=== PATIENT | female | born 1970 | race Caucasian/White ===

== ENCOUNTER 2022-05-27 06:43 | Day surgery (SDC) | payer OTHER ==
[~2022-05-27] VITALS: Ht 160 cm; Wt 72.8 kg
[~2022-05-27 06:43] MED LIST: CEPH500 PO
--- NOTE | 2022-05-27 07:35 | NUR ---
05/27/22 0735 JOSE ALBERTO OHARA 2 ATTEMPTS AT IV. FIRST ATTEMPT BY MA IN RIGHT HAND MISSED. 2ND ATTEMPT BY MA IN RIGHT WRIST SUCCESSFUL.
== END 2022-05-27 09:33 | disposition home or self-care (01) ==
LOC: ORSCSDS 06:43
PROVIDERS: Student in an Organized Health Care Education/Training Program
PROC: 0D5K8ZZ Destruction of Ascending Colon, Via Natural or Artificial Opening Endoscopic (ICD-10-PCS; principal; 2022-05-27 08:00)
PROC: 0DBH8ZX Excision of Cecum, Via Natural or Artificial Opening Endoscopic, Diagnostic (ICD-10-PCS; principal; 2022-05-27 08:00)
PROC: 0DBL8ZX Excision of Transverse Colon, Via Natural or Artificial Opening Endoscopic, Diagnostic (ICD-10-PCS; principal; 2022-05-27 08:00)
DX: Z12.11 Encounter for screening for malignant neoplasm of colon (principal); D12.2 Benign neoplasm of ascending colon; K55.20 Angiodysplasia of colon without hemorrhage
CPT/HCPCS: 88305; J2405; J2704; J7120

== ENCOUNTER 2022-05-27 22:00 | Inpatient (IN) | payer OTHER ==
[~2022-05-27] VITALS: Ht 160 cm; Wt 73.0 kg
[2022-05-27 23:00] LABS: BASOPHILS ABSOLUTE AUTO 0.03 K/mm3 (0.00-0.23); BASOPHILS PERCENT AUTO 0 % (0-2); EOSINOPHILS ABSOLUTE AUTO 0.05 K/mm3 (0.00-0.68); EOSINOPHILS PERCENT AUTO 1 % (0-6); Hematocrit 41.2 % (33.0-51.0); Hemoglobin 13.7 g/dL (11.5-16.0); IMMATURE GRAN ABSOLUTE AUTO 0.04 K/mm3 (0.00-0.10); IMMATURE GRAN PERCENT AUTO 0 % (0-1); LYMPHOCYTES ABSOLUTE AUTO 1.01 K/mm3 (0.84-5.20); LYMPHOCYTES PERCENT AUTO 11 % (21-46); MONOCYTES ABSOLUTE AUTO 0.45 K/mm3 (0.16-1.47); MONOCYTES PERCENT AUTO 5 % (4-13); Mean Corpuscular HGB Conc 33.3 g/dL (31.5-36.5); Mean Corpuscular Volume 90 fL (80-100); Mean Platelet Volume 11.4 fL (9.1-12.4); NEUTROPHILS ABSOLUTE AUTO 7.86 K/mm3 (1.96-9.15); NEUTROPHILS PERCENT AUTO 83 % (41-73); Platelet Count 256 K/mm3 (150-400); RDW Coefficient Variation 13.1 % (11.7-14.2); RDW Standard Deviation 43.3 fL (35.1-46.3); Red Blood Cell Count 4.56 M/mm3 (3.80-5.20); White Blood Cell Count 9.44 K/mm3 (4.00-11.30)
[2022-05-27 23:19] LABS: Albumin, Blood 3.6 g/dL (3.4-5.0); Bilirubin, Total 0.3 mg/dL (0.1-1.0); Bun/Creatinine Ratio 12.5 (12.0-20.0); Calcium, Blood 8.8 mg/dL (8.5-10.1); Creatinine, Blood 0.8 mg/dL (0.40-1.00); Globulin, Blood 3.6 g/dL (2.2-4.0); Potassium, Blood 3.6 mmol/L (3.5-5.5); Total Protein, Blood 7.2 g/dL (6.4-8.2)
--- NOTE | 2022-05-28 01:49 | NUR ---
05/28/22 0149 Whit Son PT ON SCHEDULED ANTIBIOTICS
--- NOTE | 2022-05-28 05:18 | NUR ---
ADMISSION TO PCU PT FROM ICU RECOVERY. ALERT BUT LETHARGIC. TACHYPNEIC, 20'S HR, SINUS TACH 100'S BUT VSS. PT TRANSFERRED INTO BED. KARLY DRESSING/PUMP NOTED TO MIDLINE ABD. CDI. DIME SIZE RED DRAINAGE NOTED. PT APINFUL. DILAUDID PCU PUMP STARTED TO RELIEF. LR STARTED PER EMAR. Q15 VS CURRENLY. ADMISSION COMPLETED TO BEST OF ABILITY GIVEN PT'S LETHARGIC STATE. BED ALARM ON. 3 SIDE RAILS UP. BED IN LOW POSITION.
[2022-05-28 06:55] LABS: Hematocrit 44.4 % (33.0-51.0); Hemoglobin 14.7 g/dL (11.5-16.0); Mean Corpuscular HGB Conc 33.1 g/dL (31.5-36.5); Mean Corpuscular Volume 91 fL (80-100); Mean Platelet Volume 11.5 fL (9.1-12.4); Platelet Count 196 K/mm3 (150-400); RDW Coefficient Variation 13.2 % (11.7-14.2); RDW Standard Deviation 44.2 fL (35.1-46.3); White Blood Cell Count 2.39 K/mm3 (4.00-11.30)
[2022-05-28 07:31] LABS: Bun/Creatinine Ratio 12.5 (12.0-20.0); Calcium, Blood 7.4 mg/dL (8.5-10.1); Creatinine, Blood 0.8 mg/dL (0.40-1.00); Magnesium, Blood 1.5 mg/dL (1.6-2.4); Potassium, Blood 3.4 mmol/L (3.5-5.5)
[2022-05-28 07:36] LABS: BAND PERCENT MAN 26 % (0-8); BASOPHILS PERCENT MAN 0 % (0-2); EOSINOPHILS PERCENT MAN 0 % (0-6); LYMPHOCYTES ABSOLUTE MAN 0.19 K/mm3 (0.84-5.20); LYMPHOCYTES PERCENT MAN 8 % (21-46); METAMYELOCYTE ABSOLUTE MAN 0.23 K/mm3 (0.00-0.00); METAMYELOCYTE PERCENT MAN 10 % (0-0); MONOCYTES ABSOLUTE MAN 0.16 K/mm3 (0.16-1.47); MONOCYTES PERCENT MAN 7 % (4-13); NEUTROPHILS ABSOLUTE MAN 1.79 K/mm3 (1.96-9.15); SEG NEUTROPHILS PERCENT MAN 49 % (41-73); TOTAL CELLS COUNTED 100
--- NOTE | 2022-05-28 08:20 | NUR ---
ASSUMED CARE: REPORT RECEIVED FROM BABITA Valero RN. ASSUMED CARE OF THIS PT AT APPROX 0700. ON ASSESSMENT, THE PT IS RESTING QUIETLY. SHE AWAKENS EASILY TO VERBAL STIMULUS & IS ORIENTED TO ALL AT THAT TIME. SHE STS HAVING ABD PAIN THAT IS IMPROVED SINCE INITIAL ONSET. USE OF MOTEL MANAGER IS REVIEWED & SHE IS ABLE TO USE W/O DIFFICULTY. TEMP READING 101.4 THIS AM, PT STS FEELING WARM & REQUESTS EXTRA BLANKETS BE REMOVED, WILL RECHECK TEMP & ADDRESS W/ PROVIDER PRN. LS CLEAR T/O, PT INITIALLY ON 1L NC, PT NOW ON RA W/ O2 SATS > 92%. MONITOR SHOWS ST W/ HR 100-110s, BP STABLE. PT NPO AT THIS TIME S/P RIGHT HEMICOLECTOMY. SANCHEZ PATENT/ DRAINING YELLOW URINE. SKIN CONDITION OVERALL INTACT. SURGICAL INCISION TO MIDLINE ABD W/ KARLY WOUND VAC IN PLACE. TWO SMALL DIME-SIZED AREAS OF DRAINAGE NOTED TO DRESSING, SANGUINOUS, DRIED. GREEN INDICATOR LIGHT ON KARLY WOUND VAC BLINKING "OK." WILL CONTINUE TO MONITOR & UPDATE NEEDED.
--- NOTE | 2022-05-28 09:15 | NUR ---
DR CASILLAS: PROVIDER AT BEDSIDE THIS AM TO [facility] PT. SHE STS THAT THE PT IS APPROPRIATE FOR TRANSFER TO SURGICAL FLOOR, TELE ORDERED R/T SINUS TACHYCARDIA. CLEAR LIQUID DIET OKAY BE STARTED & SANCHEZ CATHETER SHOULD BE REMOVED ONCE PT MORE MOBILE. ORDERS FOR PHYSICAL & OCCUPATIONAL THERAPIES ALREADY IN PLACE. PROVIDER WOULD LIKE THE PT TO HAVE AN INCENTIVE SPIROMETER AT BEDSIDE. TEMPORAL TEMP NOW DECREASED TO 100.2 & PROVIDER AWARE. NO OTHER CHANGES AT THIS TIME.
--- NOTE | 2022-05-28 12:32 | NUR ---
TRANSFER TO SURGICAL FLOOR: REPORT HAS BEEN GIVEN TO LAN Colon RN TO ASSUME CARE. PT CHART, MEDICATIONS & BELONGINGS HAVE ALL BEEN GATHERED & TAKEN TO ROOM 224 W/ THE PT. FAMILY HAS COME TO BEDSIDE AT THIS TIME & FOLLOWS THIS RN TO THE PT's NEW ROOM. VSS, PAIN WELL-MANAGED W/ FARM MACHINERY MECHANIC USE BY PT.
--- NOTE | 2022-05-28 17:18 | NUR ---
SHIFT SUMMARY PT A&OX4, VSS/RA. NAUSEA TREATED X1-ENC PT TO SLOW PO CLD INTAKE. SANCHEZ PATENT & DRAINING YELLOW URINE, STAT LOCK ON, OFF FLOOR, PLAN FOR REMOVAL TOMORROW AM. PT BEGAN MOVING AROUND TODAY, WORKING WITH THERAPY, UP TO CHAIR FOR SHORT TIME, AMB W/FWW & SBA. PAIN MANAGED WELL WITH CONTINUOUS MINER OPERATOR/DEMAND. FAMILY AT BEDSIDE. WILL REPORT TO ONCOMING NOC RN.
--- NOTE | 2022-05-29 05:05 | NUR ---
EMULSION OPERATOR SUMMARY PT WAS NAUSEAS AT START OF SHIFT DUE TO DRINKING TOO MUCH WATER. PT STATED SHE THOUGHT SHE HAD TO DRINK ALOT OF WATER TO STAY HYDRATED. EDUCATED PT TO SLOW DOWN ON PO INTAKE AND PT HAS HAD NO N/V SINCE THEN, MOSTLY TAKING SMALL SIPS AND ICE CHIPS. PT PAIN HAS ALSO BEEN MOSTLY MANAGED WITH IV TORADOL WITH MINIMAL USE OF AGENCY SERVICE COORDINATOR. PT DENIES PASSING FLATUS YET BUT HAS REPORTED SOME GURGLING OF HER BOWELS THROUGHOUT THE NIGHT. ABD KARLY DRESSING UNCHANGED THROUGH THE NIGHT, NO NEW DRAINAGE. VSS, WILL CONTINUE TO MONITOR.
[2022-05-29 08:26] LABS: Hematocrit 39.9 % (33.0-51.0); Hemoglobin 12.8 g/dL (11.5-16.0); Mean Corpuscular HGB 29.8 pg (26.0-34.0); Mean Corpuscular HGB Conc 32.1 g/dL (31.5-36.5); Mean Corpuscular Volume 93 fL (80-100); Mean Platelet Volume 12.2 fL (9.1-12.4); Platelet Count 181 K/mm3 (150-400); RDW Coefficient Variation 13.8 % (11.7-14.2); RDW Standard Deviation 46.7 fL (35.1-46.3); Red Blood Cell Count 4.29 M/mm3 (3.80-5.20); White Blood Cell Count 11.53 K/mm3 (4.00-11.30)
[2022-05-29 08:50] LABS: BAND PERCENT MAN 45 % (0-8); BASOPHILS PERCENT MAN 0 % (0-2); EOSINOPHILS PERCENT MAN 0 % (0-6); LYMPHOCYTES ABSOLUTE MAN 0.69 K/mm3 (0.84-5.20); LYMPHOCYTES PERCENT MAN 6 % (21-46); MONOCYTES ABSOLUTE MAN 0.11 K/mm3 (0.16-1.47); MONOCYTES PERCENT MAN 1 % (4-13); NEUTROPHILS ABSOLUTE MAN 10.72 K/mm3 (1.96-9.15); SEG NEUTROPHILS PERCENT MAN 48 % (41-73); TOTAL CELLS COUNTED 100
[2022-05-29 09:39] LABS: Bun/Creatinine Ratio 12.7 (12.0-20.0); Creatinine, Blood 1.42 mg/dL (0.40-1.00); Phosphorus, Blood 2.7 mg/dL (2.5-4.9); Potassium, Blood 4.3 mmol/L (3.5-5.5)
--- NOTE | 2022-05-29 16:47 | NUR ---
SUMMARY: PT IS POD1 RADHA COLECTOMY. A/O, VSS, TELE STABLE. SURGICAL SITE WNL WITH SMALL DRY DRAINAGE. PT HAD SOME NAUSEA AND EMESIS THIS AFTERNOON, PT UNSURE IF NAUSEA FROM LIQUIDS OR GETTING UP TO THE BATHROOM. HAS TAKEN IN MINIMAL PO. PT DENIES PASSING GAS, MOVEMENT ENCOURAGED. PT ABLE TO WORK WITH PT/OT. ATTEMPTED TO WEAN OFF BOILERMAKER FITTER TODAY, PT STILL NEEDED BOLUS DOSE. PT REPORTS PAIN MANAGED WELL WITH TYLENOL AND TORADOL AND DILAUDID BOILERMAKER FITTER FOR BREAK THROUGH. WILL CTM AND REPORT TO MEREDITH PEREZ.
--- NOTE | 2022-05-30 04:59 | NUR ---
ENROBING MACHINE OPERATOR SUMMARY PT HAD FIRST BOWEL MOVEMENT TONIGHT. PT WAS INCONTINENT OF BROWN LIQUID STOOL WHILE SLEEPING. SOME PASSING OF FLATUS WELL. PT ONLY TOLERATING SMALL AMOUNTS OF WATER/ICE CHIPS STILL. PT HAS BEEN USING BULB SORTER MORE AND STATED "I'VE BEEN FEELING BETTER SINCE USING THE BULB SORTER MORE BECAUSE I TOLD MYSELF I NEED TO STOP THINKING I CAN JUST TOUGH THIS OUT". PT ALSO RECIEVING IV TORADOL NEEDED. VSS, WILL CONTINUE TO MONITOR.
[2022-05-30 05:37] LABS: Hematocrit 37.5 % (33.0-51.0); Mean Corpuscular HGB 30.2 pg (26.0-34.0); Mean Corpuscular Volume 94 fL (80-100); Platelet Count 171 K/mm3 (150-400); RDW Coefficient Variation 13.7 % (11.7-14.2); RDW Standard Deviation 47.1 fL (35.1-46.3); Red Blood Cell Count 3.98 M/mm3 (3.80-5.20); White Blood Cell Count 10.51 K/mm3 (4.00-11.30)
[2022-05-30 05:52] LABS: Albumin, Blood 2.3 g/dL (3.4-5.0); Anion Gap 8 mmol/L (6-16); Blood Urea Nitrogen 17 mg/dL (8-24); Bun/Creatinine Ratio 14.9 (12.0-20.0); CO2, Blood 23 mmol/L (21-32); Calcium, Blood 8.4 mg/dL (8.5-10.1); Chloride, Blood 113 mmol/L (98-108); Creatinine, Blood 1.14 mg/dL (0.40-1.00); Glomerular Filtration Rate 59 (60-); Glucose, Blood 89 mg/dL (70-99); Phosphorus, Blood 2.2 mg/dL (2.5-4.9); Potassium, Blood 3.8 mmol/L (3.5-5.5); Sodium, Blood 144 mmol/L (136-145)
[2022-05-30 06:04] LABS: BAND PERCENT MAN 11 % (0-8); BASOPHILS PERCENT MAN 0 % (0-2); EOSINOPHILS ABSOLUTE MAN 0.31 K/mm3 (0.00-0.68); EOSINOPHILS PERCENT MAN 3 % (0-6); LYMPHOCYTES ABSOLUTE MAN 0.63 K/mm3 (0.84-5.20); LYMPHOCYTES PERCENT MAN 6 % (21-46); MONOCYTES PERCENT MAN 0 % (4-13); NEUTROPHILS ABSOLUTE MAN 9.56 K/mm3 (1.96-9.15); SEG NEUTROPHILS PERCENT MAN 80 % (41-73); TOTAL CELLS COUNTED 100
--- NOTE | 2022-05-30 17:58 | NUR ---
SHIFT SUMMARY POD 2 RADHA-COLECTOMY, MIDLINE INCISION WITH KARLY IN PLACE, HAS GOOD SEEL & SUCTION, 2 SMALL SPOTS OF DRAINAGE, UNCHANGED SINCE BEGINNING OF SHIFT. PAIN MANAGED WITH DILAUDID TAP AND DIE MAKER TECHNICIAN. NAUSEA X1 THIS SHIFT. TOLERATING VERY SMALLA MERLENE OF CLEAR LIQUIDS, MOSTLY ICE CHIPS. UP TO BR INDEPENDENTLY. HAD MEDIUM BOWEL MOVEMENT TODAY, PASSING GAS. VOIDING WELL. CALLS APPROPRIATELY, WILL REPORT TO ONCOMING RN.
[2022-05-31 05:15] LABS: Bun/Creatinine Ratio 13.9 (12.0-20.0); Calcium, Blood 8.1 mg/dL (8.5-10.1); Creatinine, Blood 1.01 mg/dL (0.40-1.00); Potassium, Blood 3.4 mmol/L (3.5-5.5)
--- NOTE | 2022-05-31 05:35 | NUR ---
SHIFT SUMMARY A/O X4- IND IN THE ROOM. POD3- RADHA COLECTOMY, KARLY DRESSING INTACT W/ DRIED DRAINAGE. PT REPORTS PASSING FLATUS AND BOWEL MOVEMENTS. VOIDING WELL AND TOLERATING CLEAR LIQUIDS- NAUSEA MEDICATIONS GIVEN Q6H PER EMAR. PAIN MANAGED W/ DILAUDID BUSINESS SUPPORT ADMINISTRATOR. VITAL SIGNS STABLE. WILL CONTINUE TO MONITOR AND REPORT TO ONCOMING RN.
--- NOTE | 2022-05-31 16:00 | NUR ---
Shift Summary POD 3 RADHA-COLECTOMY, MIDLINE KARLY IN PLACE WITH GOOD SUCTION. TOLERATING FULL LIQUID DIET WELL, MINIMAL INTAKE BUT DENIES N/V. PAIN MANAGED WITH PO OXYCODONE AND TORADOL PER EMAR. INDEPENDENT IN ROOM, AMBULATED HALLS X1 THIS SHIFT. ENCOURAGING WALKING. PATIENT HAD MULTIPLE SMALL LOOSE BM'S TODAY. REPORTS FLATUS. CALL LIGHT IN REACH. REPORT GIVEN TO ADRIENNE PEREZ.
--- NOTE | 2022-06-01 07:19 | NUR ---
SUMMARY PT TOLERATING PO.VOIDING. PASSING LIQ BM AND FLATUS. REPORTS PAIN WELL CONTROLLED WITH PO AND TORADOL.
[2022-06-02 06:03] LABS: BASOPHILS ABSOLUTE AUTO 0.05 K/mm3 (0.00-0.23); BASOPHILS PERCENT AUTO 1 % (0-2); EOSINOPHILS ABSOLUTE AUTO 0.13 K/mm3 (0.00-0.68); EOSINOPHILS PERCENT AUTO 2 % (0-6); Hematocrit 37.1 % (33.0-51.0); Hemoglobin 11.9 g/dL (11.5-16.0); Mean Corpuscular HGB 29.5 pg (26.0-34.0); Mean Corpuscular HGB Conc 32.1 g/dL (31.5-36.5); Mean Corpuscular Volume 92 fL (80-100); Mean Platelet Volume 11.9 fL (9.1-12.4); Platelet Count 181 K/mm3 (150-400); RDW Coefficient Variation 13.3 % (11.7-14.2); RDW Standard Deviation 45.3 fL (35.1-46.3); Red Blood Cell Count 4.03 M/mm3 (3.80-5.20); White Blood Cell Count 7.94 K/mm3 (4.00-11.30)
[2022-06-02 06:17] LABS: IMMATURE GRAN ABSOLUTE AUTO 0.06 K/mm3 (0.00-0.10); IMMATURE GRAN PERCENT AUTO 1 % (0-1); LYMPHOCYTES ABSOLUTE AUTO 1.26 K/mm3 (0.84-5.20); LYMPHOCYTES PERCENT AUTO 16 % (21-46); MONOCYTES ABSOLUTE AUTO 0.79 K/mm3 (0.16-1.47); MONOCYTES PERCENT AUTO 10 % (4-13); NEUTROPHILS ABSOLUTE AUTO 5.65 K/mm3 (1.96-9.15); NEUTROPHILS PERCENT AUTO 71 % (41-73)
--- NOTE | 2022-06-02 07:35 | NUR ---
SUMMARY PT WITH NO FURTHER TORADOL AVAILABLE. WAS TAKING RITESH 1 PO. THIS AM REQUESTED 2 RITESH DUE TO D/C OF TORADOL.PT PASSING LIQ STOOLS.PT WITH T MAX 100.7 DURING MY SHIFT.ENC IS PILLOW SPLINT CDB. PT ALSO WITH POSSIBLE ORAL THRUSH. DAY RN AGREES TO FOLLOW UP.
--- NOTE | 2022-06-02 10:18 | NUR ---
DR DOMINGUEZ IN TO SEE PT. DISCUSSED WHITE COATING/THRUSH ON TONGUE; ORDERS OBTAINED. DR DOMINGUEZ REMOVED KARLY DRESSING. INCISION W/NOLBERTO CDI. SMALL BLISTER NOTED NEXT TO UMBILICUS. MEDIPORE DRESSING PLACED. DC'D TELE AND RETURNED BOX PER ORDERS. PT AMBULATED IN VOSS W/SPOUSE.
--- NOTE | 2022-06-02 17:37 | NUR ---
SUMMARY NO ACUTE CHANGES T/O SHIFT. DR DOMINGUEZ REMOVED KARLY THIS AM, INCISION CDI W/NOLBERTO. SMALL BLISTER NEXT TO UMBILICUS. COVERED WITH MEDIPORE DRESSING. PT SHOWERED AND AMBULATED IN HALLS TWICE DURING SHIFT. MEDICATED PER ORDERS FOR PAIN T/O DAY. PT TOLERATING SMALL AMOUNTS OF REGULAR DIET AND DRINKING WATER. INDEPENDENT IN ROOM. CALL LIGHT IN REACH. EATING DINNER AT THIS TIME, FAMILY AT BEDSIDE.
--- NOTE | 2022-06-03 05:18 | NUR ---
SHIFT SUMMARY PATIENT ALERT AND ORIENTED WHEN AWAKE. INDEPENDENT IN ROOM, AMBULATES IN HALLS. MEDICATED FOR PAIN PRN. ABD SOFT AND NON-TENDER WITH MIDLINE MEDIPORE DRESSING WITH SCANT DRAINAGE. Q6 IV ABX.
[2022-06-03 10:05] LABS: Albumin, Blood 1.9 g/dL (3.4-5.0); Anion Gap 8 mmol/L (6-16); Blood Urea Nitrogen 4 mg/dL (8-24); Bun/Creatinine Ratio 5.3 (12.0-20.0); CO2, Blood 24 mmol/L (21-32); Calcium, Blood 8.1 mg/dL (8.5-10.1); Chloride, Blood 108 mmol/L (98-108); Creatinine, Blood 0.76 mg/dL (0.40-1.00); Glomerular Filtration Rate 95 (60-); Glucose, Blood 151 mg/dL (70-99); Magnesium, Blood 1.8 mg/dL (1.6-2.4); Phosphorus, Blood 2.4 mg/dL (2.5-4.9); Potassium, Blood 3.3 mmol/L (3.5-5.5); Sodium, Blood 140 mmol/L (136-145)
--- NOTE | 2022-06-03 16:04 | NUR ---
SHIFT SUMMARY PT HAS DONE WELL T/O SHIFT. PT UP AND AMBULATING HALLWAY. TAKING IN SMALL AMTS REGULAR DIET WITH NO C/O NV THIS SHIFT. PT C/O SWELLING BLE, WENDY STUDY NEGATIVE. SWITCHED TO ORAL ABX TO START THIS EVENING. POSSIBLE DC HOME TOMORROW.
--- NOTE | 2022-06-03 16:29 | NUR ---
ASSUMED CARE OF PATIENT. PATIENT CURRENTLY AMBULATING HALLWAYS INDEPENDENTLY. DENIES PAIN AT THIS TIME.
[2022-06-04 05:26] LABS: Hematocrit 31.7 % (33.0-51.0); Hemoglobin 10.6 g/dL (11.5-16.0); Mean Corpuscular HGB 29.6 pg (26.0-34.0); Mean Corpuscular HGB Conc 33.4 g/dL (31.5-36.5); Mean Corpuscular Volume 89 fL (80-100); Mean Platelet Volume 11.2 fL (9.1-12.4); Platelet Count 298 K/mm3 (150-400); RDW Coefficient Variation 13.2 % (11.7-14.2); RDW Standard Deviation 43.1 fL (35.1-46.3); Red Blood Cell Count 3.58 M/mm3 (3.80-5.20); White Blood Cell Count 10.55 K/mm3 (4.00-11.30)
--- NOTE | 2022-06-04 05:57 | NUR ---
POD 7 S/P COLECTOMY. PT VSS T/O NIGHT. PT REP HAVING SLEPT WELL T/O NIGHT. DRESSING CDI. PAIN MGD W/1-1.5 OXYCODONE AND TYLENOL W/REP RELIEF. PT DENIED N/V, REP +FLATUS, IS VOIDING URINE W/O DIFFICULTY. PT INDEP IN ROOM, REP EDEMA TO HIPS FEELS LESS TIGHT THIS AM.
--- NOTE | 2022-06-04 07:00 | NUR ---
ASSUMED CARE OF PATIENT. BEDSIDE REPORT RECIEVED FROM CHRIS SNOWDEN. PATIENT RESTING IN BED, HAD QUESTIONS ABOUT STOOL SOFTNER AND ANTIBIOTICS BEING ORDERED, INFORMED PATIENT SHE STILL HAD THEM SCHEDULED THIS AM AND THIS RN PLANS TO BRING WITH BREAKFAST. NO OTHER QUESTIONS OR CONCERNS, LOOKING FORWARD TO DISCHARGE HOPEFULLY TODAY. CALL LIGHT IN REACH.
[2022-06-04 07:07] LABS: BASOPHILS PERCENT MAN 0 % (0-2); EOSINOPHILS PERCENT MAN 1 % (0-6); LYMPHOCYTES ABSOLUTE MAN 1.68 K/mm3 (0.84-5.20); LYMPHOCYTES PERCENT MAN 16 % (21-46); MONOCYTES ABSOLUTE MAN 0.52 K/mm3 (0.16-1.47); MONOCYTES PERCENT MAN 5 % (4-13); NEUTROPHILS ABSOLUTE MAN 8.22 K/mm3 (1.96-9.15); SEG NEUTROPHILS PERCENT MAN 78 % (41-73); TOTAL CELLS COUNTED 100
[2022-06-04] MEDS ORDERED: ACET325 PO (10:48)
[2022-06-04] MEDS ORDERED: AMOCLA875 PO (10:48)
[2022-06-04] MEDS ORDERED: OXYC5 PO (10:51)
--- NOTE | 2022-06-04 12:47 | NUR ---
DISCHARGE MIDLINE INCISION FROM COLECTOMY HAS MEDIPORE DRESSING IN PLACE, C/D/I. ABDOMINAL PAIN MANAGED WITH OXYCODONE AND TYLENOL. TOLERATING PO DIET WELL, DENIES N/V. DRINKING & VOIDING WELL. HAVE REGULAR BM'S. DISCUSSED DISCHARGE INSTRUCTIONS, ANSWERED PATIENTS QUESTIONS. SENT DISCHARGE INSTRUCTIONS, EXTRA MEDIPORE DRESSINGS, & SCRIPTS WITH PATIENTS. ESCORTED OUT VIA W/C.
== END 2022-06-04 12:42 | disposition home or self-care (01) | DRG 329 ==
LOC: ER 22:00 → SURS 22:01 → PCU 05-28 04:35 → SURS 05-28 12:37
PROVIDERS: Emergency Medicine; Student in an Organized Health Care Education/Training Program; ADMIT Surgery
PROC: 0DTF0ZZ Resection of Right Large Intestine, Open Approach (ICD-10-PCS; principal; 2022-05-28 00:45)
PROC: 3E03329 Introduction of Other Anti-infective into Peripheral Vein, Percutaneous Approach (ICD-10-PCS; 2022-05-28 00:45)
DX: K63.1 Perforation of intestine (nontraumatic) (principal); A41.51 Sepsis due to Escherichia coli [E. coli]; K65.8 Other peritonitis; N17.9 Acute kidney failure, unspecified; B37.0 Candidal stomatitis; M79.89 Other specified soft tissue disorders; Z98.890 Other specified postprocedural states; Z79.899 Other long term (current) drug therapy
CPT/HCPCS: 36415; 74177; 80048; 80053; 80069; 83735; 84100; 84145; 85025; 87040; 87070; 87075; 87077; 87186; 87205; 88307; 93005; 93010; 93970; 96365; 96375; 96376; 97110; 97116; 97162; 97166; 97530; 97535; 99285-25; A9270; J0330; J1100; J1170; J1650; J1885; J2270; J2370; J2405; J2543; J2550; J2704; J3010; J3475; J3480; J7030; J7040; J7050; J7060; J7120; Q9967

== ENCOUNTER 2022-06-06 22:25 | Inpatient (IN) | payer OTHER ==
[~2022-06-06] VITALS: Ht 160 cm; Wt 72.6 kg
[~2022-06-06 22:25] MED LIST changes: +ACET325 PO; +AMOCLA875 PO; +OXYC5 PO
[2022-06-06 22:54] LABS: BASOPHILS ABSOLUTE AUTO 0.07 K/mm3 (0.00-0.23); BASOPHILS PERCENT AUTO 1 % (0-2); EOSINOPHILS ABSOLUTE AUTO 0.14 K/mm3 (0.00-0.68); EOSINOPHILS PERCENT AUTO 1 % (0-6); Hematocrit 37.6 % (33.0-51.0); Hemoglobin 12.8 g/dL (11.5-16.0); IMMATURE GRAN ABSOLUTE AUTO 0.09 K/mm3 (0.00-0.10); IMMATURE GRAN PERCENT AUTO 1 % (0-1); LYMPHOCYTES ABSOLUTE AUTO 2.02 K/mm3 (0.84-5.20); LYMPHOCYTES PERCENT AUTO 14 % (21-46); MONOCYTES ABSOLUTE AUTO 1.04 K/mm3 (0.16-1.47); MONOCYTES PERCENT AUTO 7 % (4-13); Mean Corpuscular HGB 29.5 pg (26.0-34.0); Mean Corpuscular Volume 87 fL (80-100); Mean Platelet Volume 9.9 fL (9.1-12.4); NEUTROPHILS ABSOLUTE AUTO 11.25 K/mm3 (1.96-9.15); NEUTROPHILS PERCENT AUTO 77 % (41-73); Platelet Count 662 K/mm3 (150-400); RDW Coefficient Variation 13.5 % (11.7-14.2); RDW Standard Deviation 43.2 fL (35.1-46.3); Red Blood Cell Count 4.34 M/mm3 (3.80-5.20); White Blood Cell Count 14.61 K/mm3 (4.00-11.30)
[2022-06-06 23:13] LABS: Albumin, Blood 2.3 g/dL (3.4-5.0); Albumin/Globulin Ratio 0.4 (0.8-1.8); Bilirubin, Total 0.3 mg/dL (0.1-1.0); Bun/Creatinine Ratio 9.1 (12.0-20.0); Calcium, Blood 8.8 mg/dL (8.5-10.1); Creatinine, Blood 0.77 mg/dL (0.40-1.00); Globulin, Blood 5.3 g/dL (2.2-4.0); Total Protein, Blood 7.6 g/dL (6.4-8.2)
[2022-06-07 02:06] LABS: Influenza A, PCR NEGATIVE (NEGATIVE); Influenza B, PCR NEGATIVE (NEGATIVE); Resp Syncytial Virus, PCR NEGATIVE (NEGATIVE); SARS-Cov-2 (COVID-19) PCR, MMC NEGATIVE (NEGATIVE)
--- NOTE | 2022-06-07 08:50 | NUR ---
PATIENT ARRIVED FROM ER TODAY 06/07/22 AT 0850. INTRA ABD ABCESS PATIENT IS A&OX4. TEMP WAS SLIGHTLY ELEVATED BUT OTHERWISE VS ARE WNL. FOR PAIN AND FEVER PATIENT WAS GIVEN IV TORADOL AND DILAUDID. PATIENT IS NPO UNTIL AFTER THE CT GUIDED TUBE IS PLACED THEN SHE CAN HAVE PO INTAKE PER DR. ACSILLAS. SHE IS A SBA WITH AMBULATION. ABD IS SOFT TO TOUCH BUT IS TENDER ON THE RIGHT SIDE. BOWEL TONES ARE ACTIVE. MIDLINE MEDIPORT IS C/D/I. PATIENT IS LAYING IN BED. CALL LIGHT WITHIN REACH. MOTHER AND FATHER ARE AT BEDSIDE.
--- NOTE | 2022-06-07 09:32 | NUR ---
PATIENT JUST LEFT FOR IMAGING.
--- NOTE | 2022-06-07 10:54 | NUR ---
PATIENT CAME BACK FROM CT GUIDED URICEL TUBE PLACEMENT AT 1030. URICEL IS ON HER LEFT LOWER ABD AND HAS RED OUTPUT. ACCORDION IS COMPRESSED. PATIENT WAS ABLE TO STAND AND TRANSFER FROM IMAGING WHEELCHAIR A SBA. PATIENT REPORTED A 5/10 PAIN AND WAS GIVEN A PO RITESH. TOLERATING SMALL AMOUNTS OF PO INTAKE. CALL LIGHT WITHIN REACH. MOTHER AT BEDSIDE.
--- NOTE | 2022-06-07 17:23 | NUR ---
SHIFT SUMMARY: URICEL ABD PLACEMENT FOR ABCESS PATIENT IS A&OX4. PATIENT HAS A SLIGHT TEMP BUT HAS RECIEVED IV TORADOL AND PO TYLENOL. OTHERWISE VS ARE WNL AND IS ON RA. PAIN IS MANAGED WITH PO RITESH. PATIENT HAS A MIDLINE MEDIPORT FROM PREVIOUS VISIT THAT IS C/D/I. THE URICEL IS ON THE LEFT LOWER ABD THAT HAS SEROSANGUANIOUS FLUID OUTPUT. ABD IS TENDER BUT SOFT TO TOUCH AND HAS HYPERACTIVE TONES. PATIENT IS TOLERATING PO INTAKE AND IS VOIDING. SHE IS INDEP IN THE ROOM AND WALKING THE HALLWAYS. PATIENT IS CURRENTLY SITTING UP IN A CHAIR WITH HER NEXT TO HER. CALL LIGHT WITHIN REACH. CALLS APPROPRIATELY. THE PLAN IS TO CONTINUE IV ABX AND MONITOR URICEL DRAINAGE WELL KEEP PAIN MANAGED.
[2022-06-08 05:02] LABS: BASOPHILS ABSOLUTE AUTO 0.05 K/mm3 (0.00-0.23); BASOPHILS PERCENT AUTO 1 % (0-2); EOSINOPHILS ABSOLUTE AUTO 0.16 K/mm3 (0.00-0.68); EOSINOPHILS PERCENT AUTO 2 % (0-6); Hematocrit 32.5 % (33.0-51.0); Hemoglobin 10.9 g/dL (11.5-16.0); IMMATURE GRAN ABSOLUTE AUTO 0.04 K/mm3 (0.00-0.10); IMMATURE GRAN PERCENT AUTO 0 % (0-1); LYMPHOCYTES PERCENT AUTO 14 % (21-46); MONOCYTES ABSOLUTE AUTO 0.92 K/mm3 (0.16-1.47); MONOCYTES PERCENT AUTO 10 % (4-13); Mean Corpuscular HGB 29.3 pg (26.0-34.0); Mean Corpuscular HGB Conc 33.5 g/dL (31.5-36.5); Mean Corpuscular Volume 87 fL (80-100); NEUTROPHILS ABSOLUTE AUTO 6.67 K/mm3 (1.96-9.15); NEUTROPHILS PERCENT AUTO 73 % (41-73); Platelet Count 561 K/mm3 (150-400); RDW Coefficient Variation 13.7 % (11.7-14.2); RDW Standard Deviation 43.8 fL (35.1-46.3); Red Blood Cell Count 3.72 M/mm3 (3.80-5.20); White Blood Cell Count 9.14 K/mm3 (4.00-11.30)
[2022-06-08 05:43] LABS: Bun/Creatinine Ratio 11.6 (12.0-20.0); Calcium, Blood 8.4 mg/dL (8.5-10.1); Creatinine, Blood 0.77 mg/dL (0.40-1.00); Magnesium, Blood 2.2 mg/dL (1.6-2.4); Potassium, Blood 3.9 mmol/L (3.5-5.5)
--- NOTE | 2022-06-08 06:55 | NUR ---
SHIFT SUMMARY S/P CT GUIDED DRAIN PLACEMENT WITH URASEL WITH 40ML, SEROSANG DRAINAGE/OUTPUT. S/P R HEMICOLECTOMY, READMITTED AFTER DC'D 06/04/22 FOR PAIN, FEVER, DECREASE BOWEL ACTIVITY. CT SHOWS INTRA ABD ABCSESS. PT DENIES PASSING FLATUS. BT PRESENT. TOLERATING PO INTAKE. DENIES NAUSEA AND VOMITING. VSS. MILD FEVER, MEDICATED WITH TYLENOL. PT REPORTS RIGHT SIDE PAIN, PAIN MANAGED WITH ROXICODONE. POWERGLIDE MADONNA WAS PLACED LAST NIGHT AND R AC PERIPHERAL IV WAS DC'S BECAUSE IT WAS LEAKING. IV ABX ADMINISTERED. CALL LIGHT WITHIN REACH. WILL CONTINUE TO MONITOR AND REPORT GIVEN TO VARGAS PEREZ.
--- NOTE | 2022-06-08 17:27 | NUR ---
SHIFT SUMMARY POD1 CT GUIDED DRAIN PLACEMENT FOR POST OP ABCESS, A/OX 4, VSS, TOLERATING PO, PAIN MANAGED PER EMAR, VOIDING, 1 BM THIS SHIFT, PT GIVEN IS AND EDUCATED ON USE, ONE TIME BREAKTHROUGH PAIN MEDICATION GIVEN (DILAUDED, SEE EMAR). NO ACUTE EVENTS THIS SHIFT, CALL LIGHT IN REACH, WILL CTM AND REPORT TO ONCOMING NOC RN.
[2022-06-09 05:06] LABS: BASOPHILS ABSOLUTE AUTO 0.07 K/mm3 (0.00-0.23); BASOPHILS PERCENT AUTO 1 % (0-2); EOSINOPHILS ABSOLUTE AUTO 0.24 K/mm3 (0.00-0.68); EOSINOPHILS PERCENT AUTO 4 % (0-6); Hematocrit 30.8 % (33.0-51.0); Hemoglobin 10.5 g/dL (11.5-16.0); IMMATURE GRAN ABSOLUTE AUTO 0.06 K/mm3 (0.00-0.10); IMMATURE GRAN PERCENT AUTO 1 % (0-1); LYMPHOCYTES ABSOLUTE AUTO 0.98 K/mm3 (0.84-5.20); LYMPHOCYTES PERCENT AUTO 15 % (21-46); MONOCYTES ABSOLUTE AUTO 0.87 K/mm3 (0.16-1.47); MONOCYTES PERCENT AUTO 13 % (4-13); Mean Corpuscular HGB 29.9 pg (26.0-34.0); Mean Corpuscular HGB Conc 34.1 g/dL (31.5-36.5); Mean Corpuscular Volume 88 fL (80-100); NEUTROPHILS ABSOLUTE AUTO 4.43 K/mm3 (1.96-9.15); NEUTROPHILS PERCENT AUTO 67 % (41-73); Platelet Count 554 K/mm3 (150-400); RDW Coefficient Variation 13.5 % (11.7-14.2); RDW Standard Deviation 43.5 fL (35.1-46.3); Red Blood Cell Count 3.51 M/mm3 (3.80-5.20); White Blood Cell Count 6.65 K/mm3 (4.00-11.30)
--- NOTE | 2022-06-09 07:38 | NUR ---
Shift SUmmary NO acute changes overnight. Pt reports constant pain but has improved overnight. Pain level averaging at 3/10. Pain managed with Toradol, Tylenol and Oxycodone. Pt denies nausea and vomiting. Tolerating PO intake. 50ml output on Urasil output with serosang drainage. IV ABX given overnight. Up independent in the bathroom, calls appropriately when needing assistance. Call light within reach. Report given to Nancy PEREZ.
--- NOTE | 2022-06-09 09:07 | NUR ---
MIDLINE MEDIPORE DRESSING CHANGED-INCISION SITE WITH NOLBERTO WITH NO DRAINAGE, REDNESS PRESENT. TEGADERM/GAUZE COVER ON INSERTION SITE FOR DRAIN WITH DRIED BLOOD PRESENT, PT STATES THAT HAS BEEN PRESENT SINCE INSERTION. ALL DRESSING REMOVED, SMALL BLISTER PRESENT UNDER TEGADERM ON L SIDE THAT OPENED WHEN REMOVING DRESSING, SMALL AMT CLEAR LIQUID DRAINED FROM IT-LEFT OPEN TO AIR.
--- NOTE | 2022-06-10 05:58 | NUR ---
PT VSS T/O NIGHT. T-MAX 100.3 AT BEGINNING OF SHIFT, TEMP DID TREND LOW 99 DURING NIGHT. PT REP GENERALIZED "NOT FEELING WELL" PT DENIED N/V, DID HAVE 1 FORMED BM. PT CONT TO REP PAIN IN RUQ ABD, REP PAIN INC W/MVMT. PT REP PAIN BEST MGD W/1 OXYCODONE. SLIGHTLY CLOUDY SS DRNG FROM URESIL DRAIN. PT AMB INDEP IN ROOM, IS USING I/S AT BEDSIDE.
--- NOTE | 2022-06-10 14:20 | NUR ---
dr chester gross, removed eddie and LLQ drain wnl.
--- NOTE | 2022-06-10 15:40 | NUR ---
pt transferred to imaging for CT via wheelchair [id number]- pt back to room
--- NOTE | 2022-06-10 17:46 | NUR ---
shift summary: vss, no acute changes this shift, pt remained a/o x 4, pleasant/cooperative, family visited with pt this shift. pt tolerating regulat diet, denies n/v, BM this shift, BT active. pt rates pain at 2-3/10 followign analgesia. Midline eddie and LLQ drain removed wnl. Dr. Eisenberg and Naomi rounded today. pt ambulated in hallway x 3 this shift, independed in room.
--- NOTE | 2022-06-11 04:33 | NUR ---
PT REMAINED AFEBRILE T/O NIGHT, VSS. INCISION CDI. PT FIDELIA SMALL AMT REG PO, DENIED N/V, REPORTED NO FLATUS OR BM THIS SHIFT. PT CONT TO REP PAIN IN RUQ ABD, REP PAIN INC W/INSPIRATION AND MVMT. PAIN MGD W/TRAMADOL AND 0.5 OXYCODONE TAB W/REP RELIEF. PT AMB INDEP IN HALLS, FIDELIA WELL.
[2022-06-11 05:33] LABS: BASOPHILS ABSOLUTE AUTO 0.07 K/mm3 (0.00-0.23); BASOPHILS PERCENT AUTO 1 % (0-2); EOSINOPHILS ABSOLUTE AUTO 0.24 K/mm3 (0.00-0.68); EOSINOPHILS PERCENT AUTO 3 % (0-6); Hematocrit 31.8 % (33.0-51.0); Hemoglobin 10.4 g/dL (11.5-16.0); IMMATURE GRAN ABSOLUTE AUTO 0.03 K/mm3 (0.00-0.10); IMMATURE GRAN PERCENT AUTO 0 % (0-1); LYMPHOCYTES ABSOLUTE AUTO 1.09 K/mm3 (0.84-5.20); LYMPHOCYTES PERCENT AUTO 15 % (21-46); MONOCYTES ABSOLUTE AUTO 0.67 K/mm3 (0.16-1.47); MONOCYTES PERCENT AUTO 9 % (4-13); Mean Corpuscular HGB 29.1 pg (26.0-34.0); Mean Corpuscular HGB Conc 32.7 g/dL (31.5-36.5); Mean Corpuscular Volume 89 fL (80-100); Mean Platelet Volume 10.1 fL (9.1-12.4); NEUTROPHILS ABSOLUTE AUTO 5.07 K/mm3 (1.96-9.15); NEUTROPHILS PERCENT AUTO 71 % (41-73); Platelet Count 720 K/mm3 (150-400); RDW Coefficient Variation 13.6 % (11.7-14.2); RDW Standard Deviation 44.4 fL (35.1-46.3); Red Blood Cell Count 3.58 M/mm3 (3.80-5.20); White Blood Cell Count 7.17 K/mm3 (4.00-11.30)
[2022-06-11 06:12] LABS: Albumin, Blood 1.9 g/dL (3.4-5.0); Albumin/Globulin Ratio 0.4 (0.8-1.8); Bilirubin, Total 0.2 mg/dL (0.1-1.0); Calcium, Blood 8.4 mg/dL (8.5-10.1); Creatinine, Blood 0.78 mg/dL (0.40-1.00); Globulin, Blood 4.9 g/dL (2.2-4.0); Potassium, Blood 4.3 mmol/L (3.5-5.5); Total Protein, Blood 6.8 g/dL (6.4-8.2)
--- NOTE | 2022-06-11 16:06 | NUR ---
INCREASE FREQUENCY ON TRAMADOL Patient using oxy for breakthrough pain usually 4 hours after tramadol. Discuss with Dr. Johnson and received V.O. to increase tramadol frequency from Q6H PRN to Q4H PRN. Order updated.
--- NOTE | 2022-06-11 16:08 | NUR ---
Pt. is sitting in a recliner and welcomes my visit. Pt. is pleasant, and doesn't display any evidence of pain and distress. Establish rapport with Pt. Pts. main cause for concern is her ability to pace herself in recovery. Listen empatheticly with a calm ing presence. Pt. displays evidence of hope and a commitment to recovery. Prayed for Pt. Pt. verbalized gratitude for the spiritual care visit.
--- NOTE | 2022-06-11 17:40 | NUR ---
Shift Summary A/Ox4, independent with mobility and ADL's. Decent appetite. Medicated for mild-moderate RUQ pain per EMAR with good effect. Tramadol changed to q4h prn per Dr. Johnson. Some yeast infection to R breast fold, patient reports improving, encouraged to keep dry. No other acute concerns. Poss d/c tomorrow.
--- NOTE | 2022-06-12 05:01 | NUR ---
CAR STORER SUMMARY NO ACUTE CHANGES THIS SHIFT. PT AAOX4 AND INDEPENDENT IN ROOM. PT STILL HAVING SOME ABD PAIN THAT HAS BEEN CONTROLLED WITH TRAMADOL Q4H. TOLERATING REGULAR DIET HOWEVER THE PT DOES REPORT A POOR APPETITE. VSS, WILL CONTINUE TO MONITOR.
[2022-06-12 07:31] LABS: BASOPHILS ABSOLUTE AUTO 0.07 K/mm3 (0.00-0.23); BASOPHILS PERCENT AUTO 1 % (0-2); EOSINOPHILS ABSOLUTE AUTO 0.39 K/mm3 (0.00-0.68); EOSINOPHILS PERCENT AUTO 5 % (0-6); Hematocrit 33.5 % (33.0-51.0); IMMATURE GRAN ABSOLUTE AUTO 0.02 K/mm3 (0.00-0.10); IMMATURE GRAN PERCENT AUTO 0 % (0-1); LYMPHOCYTES ABSOLUTE AUTO 1.54 K/mm3 (0.84-5.20); LYMPHOCYTES PERCENT AUTO 21 % (21-46); MONOCYTES ABSOLUTE AUTO 0.61 K/mm3 (0.16-1.47); MONOCYTES PERCENT AUTO 8 % (4-13); Mean Corpuscular HGB 29.2 pg (26.0-34.0); Mean Corpuscular HGB Conc 32.8 g/dL (31.5-36.5); Mean Corpuscular Volume 89 fL (80-100); Mean Platelet Volume 9.9 fL (9.1-12.4); NEUTROPHILS ABSOLUTE AUTO 4.84 K/mm3 (1.96-9.15); NEUTROPHILS PERCENT AUTO 65 % (41-73); Platelet Count 808 K/mm3 (150-400); RDW Coefficient Variation 13.4 % (11.7-14.2); RDW Standard Deviation 43.8 fL (35.1-46.3); Red Blood Cell Count 3.77 M/mm3 (3.80-5.20); White Blood Cell Count 7.47 K/mm3 (4.00-11.30)
[2022-06-12] MEDS ORDERED: TRAM50 PO (12:31)
--- NOTE | 2022-06-12 15:33 | NUR ---
DR. GREY IN ROOM AT ABOUT 1300
--- NOTE | 2022-06-12 15:35 | NUR ---
PT TO IMAGING VIA WHEELCHAIR AT ABOUT 1520
--- NOTE | 2022-06-12 17:01 | NUR ---
DISCHARGE: PACKET PRINTED AND PT EDUCATED. POWERGLIDE DC'D WNL, TIP INTACT. PT GIVEN TRAMADOL SCRIPT. PT LEFT UNIT VIA WHEELCHAIR AT ABOUT 1640 WITH ALISON HERNANDEZ
== END 2022-06-12 16:53 | disposition home or self-care (01) | DRG 863 ==
LOC: ER 22:25 → ERHOLD 06-07 04:20 → SURS 06-07 08:28
PROVIDERS: Student in an Organized Health Care Education/Training Program; Surgery; ADMIT Surgery
PROC: 0W9J30Z Drainage of Pelvic Cavity with Drainage Device, Percutaneous Approach (ICD-10-PCS; principal; 2022-06-07)
DX: T81.43XA Infection following a procedure, organ and space surgical site, initial encounter (principal); J90 Pleural effusion, not elsewhere classified; K63.0 Abscess of intestine; Z20.822 Contact with and (suspected) exposure to COVID-19; Z86.010 Personal history of colon polyps; Z98.890 Other specified postprocedural states; Z98.891 History of uterine scar from previous surgery; Z79.2 Long term (current) use of antibiotics
CPT/HCPCS: 0241U; 36415; 49405; 71046; 74177; 80048; 80053; 83605; 83735; 84145; 85025; 87040; 87070; 87075; 87205; 96374; 96375; 96376; 99284-25; A9270; C1751; J1170; J1650; J1885; J2270; J2543; J7030; J7040; Q9967